=== PATIENT | female | born 1930 | race Caucasian/White ===

== ENCOUNTER 2018-05-23 13:25 | Emergency (ER) | payer OTHER, MEDICARE ==
[~2018-05-23] VITALS: Ht 157.5 cm; Wt 59.0 kg
[~2018-05-23 13:25] MED LIST: AMITRIP CDP PO; APAP500 PO; ATENOLOL 25 MG25 M1 PO; DICYCLOMINE HCL20 MG PO; MULTIVITAMINS PO; MULTIVITAMINS1 EAC7; XANAX 0.25 MG0.25 MG PO; XANAX 0.5 MG0.5 M1 PO
[2018-05-23] MEDS ORDERED: ATENOLOL 50MG T50 M1 PO (14:12)
[2018-05-23] MEDS ORDERED: ELIQUIS2.5 MG PO (14:14)
[2018-05-23 14:43] LABS: EOSINOPHILS 0.8 % (0.0-3.0); HEMATOCRIT 38.8 % (37.0-47.0); HEMOGLOBIN 13.1 gm/dL (12.0-15.0); LYMPHOCYTES 17.6 % (24.0-44.0); MCH 29.3 pg (26.0-34.0); MCHC 33.7 g/dL (28.0-37.0); MCV 86.8 fL (80.0-100.0); PLATELET COUNT 246 thou/uL (150-400); POLYS 74.6 % (36.0-66.0); RBC 4.47 mil/uL (4.20-5.00); RDW 14.2 % (10.5-14.5); WBC 6.7 thou/uL (4.0-11.0)
[2018-05-23 14:52] LABS: ANION GAP 7 mmol/L (7-16); BUN 30 mg/dL (7-18); CHLORIDE 101 mmol/L (98-107); CO2 29 mmol/L (21-32); GLUCOSE 112 mg/dL (74-106); POTASSIUM 3.9 mmol/L (3.5-5.1); SODIUM 137 mmol/L (136-145)
[2018-05-23 15:01] LABS: ALBUMIN 4.2 g/dL (3.4-5.0); D-DIMER 0.28 ug/mLFEU (0.19-0.50); PROTIME 10.1 Seconds (9.3-11.4); SGOT 22 U/L (15-37); SGPT 21 U/L (30-65); TOTAL PROTEIN 7.8 g/dL (6.4-8.2); TROPONIN-I <0.06 ng/mL (<0.06)
[2018-05-23 15:12] LABS: URINE BILIRUBIN NEGATIVE (Negative); URINE BLOOD NEGATIVE (Negative); URINE CLARITY CLEAR; URINE COLOR YELLOW; URINE GLUCOSE-RANDOM* NEGATIVE (Negative); URINE KETONES NEGATIVE (Negative); URINE LEUKOCYTES-REFLEX NEGATIVE (Negative); URINE NITRITE-REFLEX NEGATIVE (Negative); URINE PROTEIN (DIPSTICK) NEGATIVE (Negative); URINE SPECIFIC GRAVITY <= 1.005 (1.005-1.035); URINE UROBILINOGEN 0.2 E.U./dl (0.2-1.0)
[2018-05-23] MEDS ORDERED: VENTOLIN HFA 1818 GM INH (15:13)
[2018-05-23] MEDS ORDERED: NORFLEX100 MG PO (15:13)
[2018-05-23 16:35] VITALS: BP 178/85
--- NOTE | 2018-05-24 10:50 | EKG ---
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1930 Requested By: Anthony Sol Order Number: [id number] MD: Isaías Silva Measurements Intervals [place] Rate: 64 P: 45 NM: 338 QRS: -81 QRSD: 141 T: 94 QT: 467 QTc: 482 Interpretive Statements Ventricular-paced complexes No further analysis attempted due to paced rhythm Compared to ECG 09/11/2012 10:46:54 Sinus rhythm no longer present ST (T wave) deviation no longer present Prolonged QT interval no longer present Electronically Signed On 05-24-2018 10:50:08 CDT by Isaías Silva [email or web address] ��������������������������������������������� <ELECTRONICALLY SIGNED> ���������������������������������������� By: Isaías Silva MD ��������������������������������������������� 05/24/18 1050 1343 1343 Isaías Silva MD /EPI
== END 2018-05-23 16:35 | disposition home or self-care (01) ==
LOC: ER 13:25
PROVIDERS: Emergency Medicine
DX: R06.00 Dyspnea, unspecified (principal); M62.830 Muscle spasm of back; I10 Essential (primary) hypertension; M79.7 Fibromyalgia; Z88.0 Allergy status to penicillin

== ENCOUNTER 2019-08-16 07:50 | Observation (INO) | payer OTHER, MEDICARE ==
[~2019-08-16] VITALS: Ht 157.5 cm; Wt 62.6 kg
[~2019-08-16 07:50] MED LIST changes: +ATENOLOL 50MG T50 M1 PO; +ELIQUIS2.5 MG PO; +NORFLEX100 MG PO; +VENTOLIN HFA 1818 GM INH
[2019-08-16 07:53] VITALS: BP 189/88
[2019-08-16 08:13] LABS: ABSOLUTE NEUTROPHILS 4.5 thou/uL (1.4-8.2); BASOPHILS 1.4 % (0.0-2.0); EOSINOPHILS 2.5 % (0.0-3.0); HEMATOCRIT 38.6 % (37.0-47.0); HEMOGLOBIN 12.9 gm/dL (12.0-15.0); LYMPHOCYTES 23.3 % (24.0-44.0); MCH 29.5 pg (26.0-34.0); MCHC 33.4 g/dL (28.0-37.0); MCV 88.4 fL (80.0-100.0); MONOCYTES 6.9 % (1.0-8.0); PLATELET COUNT 296 thou/uL (150-400); POLYS 65.9 % (36.0-66.0); RBC 4.37 mil/uL (4.20-5.00); WBC 6.8 thou/uL (4.0-11.0)
[2019-08-16 08:27] LABS: ANION GAP 9 mmol/L (7-16); BUN 25 mg/dL (7-18); CALCIUM 9.1 mg/dL (8.5-10.1); CHLORIDE 103 mmol/L (98-107); CO2 27 mmol/L (21-32); CREATININE 1.1 mg/dL (0.6-1.0); GLUCOSE 132 mg/dL (74-106); POTASSIUM 3.8 mmol/L (3.5-5.1); SODIUM 139 mmol/L (136-145)
[2019-08-16] MEDS ORDERED: TENORMIN25 MG PO (08:28)
[2019-08-16 08:37] LABS: ALBUMIN 3.5 g/dL (3.4-5.0); MAGNESIUM 2.2 mg/dL (1.8-2.4); SGOT 23 U/L (15-37); SGPT 20 U/L (30-65); TOTAL BILIRUBIN 0.7 mg/dL (0.2-1.0); TOTAL PROTEIN 6.8 g/dL (6.4-8.2); TROPONIN-I <0.06 ng/mL (<0.06)
[2019-08-16 08:45] VITALS: BP 189/88
[2019-08-16 10:14] VITALS: BP 155/46
--- NOTE | 2019-08-16 10:30 | NUR ---
PT REPORTS CHEST PRESSURE ON SAT WHEN OUT IN [employer]...DENIES CHEST PAIN AT PRESENT BUT DOES STATE SLIGHTLY SHORT OF AIR WITH ACTIVITY
[2019-08-16 10:50] VITALS: BP 170/71
[2019-08-16 16:58] VITALS: BP 179/71
[2019-08-16 19:34] VITALS: BP 172/70
[2019-08-17 00:41] VITALS: BP 160/74; BP 160/741
--- NOTE | 2019-08-17 03:36 | NUR ---
ASSUMED PT CARE AROUND 1930. AXOX4. INDEPENDENT WITH ADLs AND CALL APPROPRITAELY FOR ASSISTANCE. DENIES CHEST PAIN. NO S/S ACUTE DISTRESS NOTED OR REPORTED AT THIS TIME. WILL CONT TO MONITOR FOR ANY CHANGES IN CONDITION.
[2019-08-17 04:38] VITALS: BP 153/68
[2019-08-17 07:17] VITALS: BP 189/83
[2019-08-17 08:13] LABS: CALCIUM 8.9 mg/dL (8.5-10.1); CREATININE 1.1 mg/dL (0.6-1.0); MAGNESIUM 2.4 mg/dL (1.8-2.4)
--- NOTE | 2019-08-17 08:36 | EKG ---
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 : 1930 Requested By: Anthony Sol Order Number: [id number] MD: John Frost Measurements Intervals [place] Rate: 63 P: 193 TN: 358 QRS: -78 QRSD: 143 T: 99 QT: 468 QTc: 480 Interpretive Statements Sinus rhythm with ventricular pacing Compared to ECG 05/23/2018 13:43:13 No significant change was found Electronically Signed On 08-17-2019 8:35:56 CDT by John Frost [email or web address] <ELECTRONICALLY SIGNED> By: John Frost MD, [facility] 08/17/1933 08 08 John Frost MD, [facility] /EPI
--- NOTE | 2019-08-17 10:53 | NUR ---
INITIAL ASSESSMENT: Received consult for possible HH services. SW reviewed chart and spoke with nursing. Pt was admitted from home due to chest pain. Pt was admitted into [facility] to r/o [facility] Pt's first test is negative. Cardiology consulted. Pt to have echo and possible discharge home later today. SW placed call in pt's room. No answer. Per nursing, pt lives at home. No discharge needs anticipated at this time. FARZANA is following to assist as needed with discharge planning.
--- NOTE | 2019-08-17 11:22 | 2DMMODE ---
[facility] [place] [address] 2 D/M-MODE ECHOCARDIOGRAM Name: CANDI GARCIA Room #: 353-P [facility] M.R.#: [id number] Admission: 08/16/19 Attend Phys: Harris Pratt MD Discharge: Date of : 34 Report #: [id number] THIS REPORT FOR: cc: Austin Gonzales MD, Douglas James MD Lundgren,John Barnes MD [facility] ~ APPROVED REPORT Study performed: 08/17/2019 10:31:02 EXAM: Comprehensive 2D, Doppler, and color-flow Echocardiogram Patient Location: Bedside Room #: 353 Status: routine BSA: 1.63 HR: 60 bpm BP: 170/71 mmHg Rhythm: Pacemaker Indications Short of breath, elevated BNP. Hx: Afib, pacemaker, HTN. 2D Dimensions RVDd: 37.37 mm IVSd: 12.22 (7-11mm) LVOT Diam: 19.29 (18-24mm) LVDd: 40.43 mm PWd: 12.00 (7-11mm) Ascending Ao: 31.06 (22-36mm) LVDs: 29.49 (25-40mm) Aortic Root: 32.10 mm Volumes Left Atrial Volume (Systole) Single Plane 4CH: 47.56 mL Single Plane 2CH: 47.90 mL LA ESV Index: 33.00 mL/m2 Aortic Valve AoV Peak Romario.: 1.51 m/s AO Peak Gr.: 9.08 mmHg LVOT Max P.36 mmHg LVOT Max V: 0.92 m/s MARY Vmax: 1.78 cm2 AI Vmax: 4.38 m/s AI [place]: 2.73 m/s2 AI PHT: 464.75 ms [facility] [employer] [address] [place] [address] 2 D/M-MODE ECHOCARDIOGRAM Name: CANDI GARCIA Room #: 353-P [facility] ..#: [id number] Admission: 08/16/19 Attend Phys: Harris Pratt MD Discharge: Date of : 34 Report #: [id number] Mitral Valve E/A Ratio: 0.5 MV Decel. Time: 171.91 ms MV E Max Romario.: 0.77 m/s MV A Romario.: 1.41 m/s MV PHT: 49.86 ms IVRT: 128.03 ms Pulmonary Valve PV Peak Romario.: 0.81 m/s PV Peak Gr.: 2.63 mmHg AL End Vmax: 1.50 m/s Tricuspid Valve TR Peak Romario.: 2.33 m/s RAP Estimate: 5.00 mmHg TR Peak Gr.: 22.00 mmHg PA Pressure: 27.00 mmHg Left Ventricle The left ventricle is normal size. There is normal LV segmental wall motion. Mild concentric left ventricular hypertrophy. Left ventricular systolic function is normal. LVEF is 55-60%. Mild diastolic dysfunction Right Ventricle The right ventricle is normal size. The right ventricular systolic function is normal. Atria Left atrium is mildly dilated. Right atrium is mildly dilated. Pacemaker lead is present in the right atrium. Aortic Valve Aortic valve leaflets are mildly calcified. Moderate aortic regurgitation. There is no aortic valvular stenosis. Mitral Valve Mitral valve leaflets are mildly thickened. Moderate mitral regurgitation. No evidence of mitral valve stenosis. Tricuspid Valve The tricuspid valve is normal in structure. Mild to moderate tricuspid regurgitation. Estimated PAP is 25-30mmHg. Pulmonic Valve The pulmonary valve is normal in structure. Mild pulmonic [facility] [address] [place] [address] 2 D/M-MODE ECHOCARDIOGRAM Name: CANDI GARCIA Room #: 353-P [facility] M.R.#: [id number] Admission: 08/16/19 Attend Phys: Harris Pratt MD Discharge: Date of : 34 Report #: [id number] regurgitation. Great Vessels The aortic root is normal in size. The ascending aorta is normal in size. IVC is normal in size and collapses >50% with inspiration. Pericardium There is no pericardial effusion. <Conclusion> Left ventricular systolic function is normal. There is normal LV segmental wall motion. LVEF is 55-60%. Mild diastolic dysfunction Both atria are mildly dilated. Aortic valve leaflets are mildly calcified. Moderate regurgitation, no stenosis. Mitral valve leaflets are mildly thickened. Moderate mitral regurgitation. Mild to moderate tricuspid regurgitation. Estimated pulmonary artery pressure of 25-30mmHg. There is no pericardial effusion. <ELECTRONICALLY SIGNED> By: John Frost MD, [facility] 08/17/19 112 20 20 John Frost MD, [facility] /INF
[2019-08-17] MEDS ORDERED: ATENOLOL 50MG T50 MG PO (11:42)
[2019-08-17 12:53] VITALS: BP 189/83
--- NOTE | 2019-08-17 14:31 | NUR ---
PATIENT DISCHARGED AT THIS TIME. SHE IS ALERT ORIENTED X4. DENIES PAIN AND STATES SHE IS READY TO GO HOME. RESPIRATIONS ARE EVEN NON LABORED. DOES NOT SEEM ANXIOUS. WILL CONT WITH PLAN OF CARE.
== END 2019-08-17 14:06 | disposition home or self-care (01) ==
LOC: ER 07:50 → EROBS 09:34 → 3W 09:34
PROVIDERS: Emergency Medicine; Nurse Practitioner; ADMIT Hospitalist; ATTEND Hospitalist
DX: R07.89 Other chest pain (principal); R06.02 Shortness of breath; I10 Essential (primary) hypertension; I48.91 Unspecified atrial fibrillation; Z20.828 Contact with and (suspected) exposure to other viral communicable diseases

== ENCOUNTER 2020-02-17 12:05 | Emergency (ER) | payer OTHER, MEDICARE ==
[~2020-02-17] VITALS: Ht 154.9 cm; Wt 54.4 kg
[~2020-02-17 12:05] MED LIST changes: +ATENOLOL 50MG T50 MG PO; +TENORMIN25 MG PO
[2020-02-17 14:37] LABS: BASOPHILS 0.4 % (0.0-2.0); EOSINOPHILS 0.2 % (0.0-3.0); HEMATOCRIT 36.1 % (37.0-47.0); HEMOGLOBIN 12.1 gm/dL (12.0-15.0); LYMPHOCYTES 9.8 % (24.0-44.0); MCH 29.2 pg (26.0-34.0); MCHC 33.4 g/dL (28.0-37.0); MCV 87.5 fL (80.0-100.0); MONOCYTES 5.6 % (1.0-8.0); PLATELET COUNT 290 thou/uL (150-400); RBC 4.13 mil/uL (4.20-5.00); RDW 14.3 % (10.5-14.5); WBC 9.6 thou/uL (4.0-11.0)
[2020-02-17 14:52] LABS: CALCIUM 9.5 mg/dL (8.5-10.1); CREATININE 1.1 mg/dL (0.6-1.0)
[2020-02-17 14:58] LABS: ALBUMIN 3.9 g/dL (3.4-5.0); TOTAL BILIRUBIN 0.9 mg/dL (0.2-1.0); TOTAL PROTEIN 7.3 g/dL (6.4-8.2)
[2020-02-17 15:50] LABS: APTT 28.5 Seconds (24.5-32.8); PROTIME 10.4 Seconds (9.3-11.4)
[2020-02-17 15:54] LABS: MAGNESIUM 2.3 mg/dL (1.8-2.4); TROPONIN-I <0.06 ng/mL (<0.06)
[2020-02-17 17:56] VITALS: BP 168/79
--- NOTE | 2020-02-18 07:17 | EKG ---
[place] [address] [place] [address] ELECTROCARDIOGRAM REPORT Name: Diogo GARCIA [facility] [id number] Admission: 02/17/20 Attend Phys: Discharge: 02/17/20 Date of : 34 Report #: [id number] 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1930 Requested By: Anil Mcgregor Order Number: [id number] MD: John Frost Measurements Intervals [place] Rate: 63 P: 135 CO: 387 QRS: -81 QRSD: 146 T: 99 QT: 490 QTc: 502 Interpretive Statements Ventricular-paced complexes No further analysis attempted due to paced rhythm Compared to ECG 08/16/2019 08:00:09 No significant change was found Electronically Signed On 02-18-2020 7:17:23 TAKER OFF HEMP FIBER by John Frost [email or web address] <ELECTRONICALLY SIGNED> By: John Frost MD, [facility] 02/18/20 0717 1613 1613 John Frost MD, [facility] /EPI
== END 2020-02-17 17:56 | disposition home or self-care (01) ==
LOC: ER 12:05
PROVIDERS: Emergency Medicine
DX: R53.1 Weakness (principal); I48.0 Paroxysmal atrial fibrillation; D68.318 Other hemorrhagic disorder due to intrinsic circulating anticoagulants, antibodies, or inhibitors; I10 Essential (primary) hypertension; Z90.89 Acquired absence of other organs; Z79.899 Other long term (current) drug therapy; Z88.0 Allergy status to penicillin